=== PATIENT | female | born 1995 | race Two or more races ===

== ENCOUNTER 2017-09-09 01:36 | Emergency (ER) | END 2017-09-09 09:10 ==

== ENCOUNTER 2018-05-15 05:20 | Emergency (ER) | END 2018-05-15 07:46 | disposition home or self-care (01) ==

== ENCOUNTER 2018-12-26 23:21 | Emergency (ER) | payer SELFPAY ==
[~2018-12-26] VITALS: Wt 70.2 kg
[~2018-12-26 23:21] MED LIST: ALPR0.5T6 PO; CEPH-443 PO; NAPR-985 PO
[2018-12-26 23:34] VITALS: BP 130/80; PULSE 69; RESP 22
[2018-12-27] MEDS ORDERED: HYDROCODONE/APAP (5/325) TAB PO STA (01:51)
[2018-12-27] MEDS ORDERED: NAPR-985 PO (04:03)
--- NOTE | 2018-12-27 05:09 | ERD ---
ER Documentation Chief Complaint Chief Complaint L side pelvic pain x2wks. no dysuria. nausea, diarrhea x1wk HPI 23-year-old female presents to the emergency department complaining of left- sided suprapubic pain intermittently for the past 3 weeks. She reports stabbing pain. She is never had this pain in the past. She states ibuprofen alleviate symptoms. She denies any vaginal bleeding or discharge or fevers or chills or abdominal pain. She states pain is currently rated 5/10 in severity. Her last menstrual cycle was 10/17/2018. She states her period is irregular. ROS All systems reviewed and are negative except as per history of present illness. Medications Home Meds Active Scripts Naproxen* (Naprosyn*) 500 Mg Tablet, 500 MG PO BID PRN for PAIN AND/OR INFLAMMATION, #30 TAB Prov:ZOE PEARCE PA-C 12/27/18 Naproxen* (Naprosyn*) 500 Mg Tablet, 500 MG PO BID PRN for PAIN AND/OR INFLAMMATION, #30 TAB Prov:NONA AARON PA-C 05/15/18 Cephalexin* (Keflex*) 500 Mg Capsule, 500 MG PO BID for 7 Days, CAP Prov:NONA AARON PA-C 05/15/18 Reported Medications Alprazolam* (Alprazolam*) 0.5 Mg Tablet, 0.5 MG PO Q8H PRN for ANXIETY, TAB 09/09/17 Allergies Allergies: Coded Allergies: No Known Drug Allergies (Unverified Allergy, Unknown, 05/15/18) PMhx/Soc History of Surgery: No Anesthesia Reaction: No Hx Neurological Disorder: No Hx Respiratory Disorders: No Hx Cardiac Disorders: No Hx Psychiatric Problems: No Hx Miscellaneous Medical Probl: Yes (HYPOTHYROIDISM) Hx Alcohol Use: Yes Hx Substance Use: Yes (MARIJUANA) Hx Tobacco Use: Yes Smoking Status: Never smoker FmHx Family History: No diabetes Physical Exam Vitals Vital Signs Date Temp Pulse Resp B/P (MAP) Pulse Ox O2 O2 Flow FiO2 Time Delivery Rate 12/26/18 99.5 69 22 130/80 97 23:34 (97) Physical Exam Const: No acute distress Head: Atraumatic Eyes: Normal Conjunctiva ENT: Normal External Ears, Nose and Mouth. Neck: Full range of motion. No meningismus. Resp: Clear to auscultation bilaterally Cardio: Regular rate and rhythm, no murmurs Abd: Soft, non tender, non distended. Normal bowel sounds. No rebound tenderness or guarding. No McBurney's point tenderness. Subjective tenderness palpation of the left suprapubic region. Skin: No petechiae or rashes Back: No midline or flank tenderness Ext: No cyanosis, or edema Neur: Awake and alert Psych: Normal Mood and Affect Result Diagram: 12/27/1820312/27/18203 Results 24 hrs Laboratory Tests Test 12/27/18 02:04 White Blood Count 8.4 10^3/ul Red Blood Count 4.60 10^6/ul Hemoglobin 13.6 g/dl Hematocrit 42.1 % Mean Corpuscular Volume 91.5 fl Mean Corpuscular Hemoglobin 29.6 pg Mean Corpuscular Hemoglobin Concent 32.3 g/dl Red Cell Distribution Width 13.1 % Platelet Count 375 10^3/UL Mean Platelet Volume 8.6 fl Immature Granulocytes % 0.500 % Neutrophils % 49.1 % Lymphocytes % 39.8 % Monocytes % 7.7 % Eosinophils % 2.1 % Basophils % 0.8 % Nucleated Red Blood Cells % 0.0 /100WBC Immature Granulocytes # 0.040 10^3/ul Neutrophils # 4.1 10^3/ul Lymphocytes # 3.4 10^3/ul Monocytes # 0.7 10^3/ul Eosinophils # 0.2 10^3/ul Basophils # 0.1 10^3/ul Nucleated Red Blood Cells # 0.0 10^3/ul Urine Color YELLOW Urine Clarity SLIGHTLY CLOUDY Urine pH 5.0 Urine Specific [place] 1.036 Urine Ketones TRACE mg/dL Urine Nitrite NEGATIVE mg/dL Urine Bilirubin NEGATIVE mg/dL Urine Urobilinogen NEGATIVE mg/dL Urine Leukocyte Esterase NEGATIVE Chandrika/ul Urine Microscopic RBC 3 /HPF Urine Microscopic WBC 1 /HPF Urine Squamous Epithelial Cells FEW /HPF Urine Mucus FEW /HPF Urine Hemoglobin NEGATIVE mg/dL Urine Glucose NEGATIVE mg/dL Urine Total Protein NEGATIVE mg/dl Sodium Level 141 mmol/L Potassium Level 4.4 mmol/L Chloride Level 107 mmol/L Carbon Dioxide Level 28 mmol/L Anion Gap 6 Blood Urea Nitrogen 16 mg/dl Creatinine 0.74 mg/dl Est Glomerular Filtrat Rate mL/min > 60 mL/min Glucose Level 97 mg/dl Calcium Level 9.3 mg/dl POC Beta HCG, Qualitative NEGATIVE Current Medications Medications Dose Sig/[place] Start Time Status Last (Trade) Ordered Route PRN Stop Time Admin Dose Reason Admin 1 tab ONCE STAT 12/27/18 DC 12/27/18 Acetaminophen PO 01:51 02:02 / 12/27/18 01:53 Hydrocodone Bitart ([place] ()) [place] [id number] Radiology Main Line: [phone] DIAGNOSTIC IMAGING REPORT Patient: FELIPA DE LA ROSA : 1995 Age: 23 Sex: F MR #: [id number] DOS: 12/27/18 0151 Ordering MD: ZOE PEACRE PA-C Location: [facility] Room/Bed: PROCEDURE: Pelvic ultrasound and color-flow Doppler of the adnexa. CLINICAL INDICATION: Pain TECHNIQUE: Multiple sagittal, oblique and transverse real time images were obtai baltazar of the lower abdomen and pelvis using a transabdominal as well a transvaginal approach. Color-flow Doppler of the adnexa was performed. COMPARISON: Pelvic ultrasound 05/15/2018 FINDINGS: The uterus is normal limits in size measuring 6.85 x 3.02 x 5.7 cm. Myometrial echoes are homogeneous without focal lesions. Endometrium homogeneous without focal lesion normal thickness maximal AP diameter 0.36 cm. The ovaries are normal in size the right measuring 2.79 x 1.69 x 1.80 cm and the left measuring 2.8 x 1.46 x 2.07 cm. No evidence of ovarian masses. Flow to both ovaries without ultrasonic evidence of ovarian torsion. No adnexal masses or free fluid para IMPRESSION: 1. Unremarkable uterus and ovaries without focal lesions and no ultrasonic evidence of ovarian torsion. 2. No adnexal masses or free fluid. RPTAT:AAJJ Physician Jorge Date Time Electronically viewed and signed by Physician Jorge on 12/27/2018 03:44 BM/ CC: ZOE PEARCE ANGE [id number] Procedures/MDM 23-year-old female presents to the emergency department complaining of left- sided suprapubic pain. No evidence of urinary tract infection. Urine was negative. Pelvic ultrasound showed no significant acute abnormalities and the full report interpreted by the radiologist may be viewed above. No evidence to suggest ectopic , tubo-ovarian abscess, ovarian torsion, or other emergencies. Patient will be discharged home with prescriptions to treat her pain at home. She was advised to follow-up with [facility] physician within the next 24 to 48 hours and return to the department immediately for any new or worsening or concerning symptoms. She was in agreement with the diagnosis, plan, need for follow-up, return precautions. Departure Diagnosis: Primary Impression: Acute pain in female pelvis Condition: Fair Patient Instructions: Pelvic Pain, Unknown Cause Referrals: [facility] [address] [facility] [address] [place], [place] [phone] OFFICE FAX , [facility] [address] [place], [place] [phone] [facility] [address] [place], [place] [phone]ALOB[address], [facility] [address] [facility], [facility] [address] [address] [address] [address] [place] [phone] [facility] [address] [address] [place], [place] [id number] [address] [facility] [address] - [address], [facility] [address] [address] ALVAR[address]O, [place] [address] [facility] [address] [place] [phone] [address] [address] [place] [address] Additional Instructions: Call your primary care doctor TOMORROW for an appointment during the next 1-2 days.See the doctor sooner or return here if your condition worsens before your appointment time. SPECIALIST: YOU HAVE A MEDICAL CONDITION WHICH REQUIRES YOU TO SEE A SPECIALIST WITHIN THE NEXT 1-2 DAYS. PLEASE FOLLOW UP WITH YOUR PRIMARY PHYSICIAN FOR REFFERAL.IF YOU DO NOT HAVE A PRIMARY CARE PHYSICIAN AND/OR YOU C AN NOT AFFORD TO SEE A PHYSICIAN THE FOLLOWING RESOURCES HAVE BEEN SUPPLIED TO YOU. IT IS YOUR RESPONSIBILITY TO BE SEEN BY THE SPECIALIST: ZOE NARVAEZ PA-C December 27, 2018 05:08
== END 2018-12-27 04:12 | disposition home or self-care (01) ==
LOC: FTE 23:21
DX: R10.2 Pelvic and perineal pain (principal); E03.9 Hypothyroidism, unspecified; Z87.891 Personal history of nicotine dependence
CPT/HCPCS: 36415; 76830; 76856; 80048; 81001; 81003; 81025; 85025